=== PATIENT | female | born 1990 | race Two or more races ===

== ENCOUNTER 2022-01-17 20:23 | Emergency (ER) | payer SELFPAY ==
[~2022-01-17] VITALS: Ht 152.4 cm; Wt 86.4 kg
[2022-01-17 22:00] VITALS: BP 150/79
== END 2022-01-17 22:53 ==
LOC: ER 20:24
DX: F10.129 Alcohol abuse with intoxication, unspecified (principal); Z02.89 Encounter for other administrative examinations; Y90.9 Presence of alcohol in blood, level not specified
CPT/HCPCS: 99283

== ENCOUNTER 2025-04-15 00:02 | Emergency (ER) | payer MEDICAID ==
[~2025-04-15] VITALS: Ht 157.5 cm; Wt 90.9 kg
[2025-04-15 00:09] VITALS: BP 175/112; PULSE 114; RESP 16; O2SAT 100
--- NOTE | 2025-04-15 01:17 | Physician Documentation ---
History of Present Illness ~ Chief Complaint: Abscess Stated Complaint: BITE ON LEG Time Seen by MD: 01:17 HPI Patient presents to the emergency room for evaluation of her right buttock. She states over the past week that has some pain and swelling it has been given to drain. No fevers. No prior instance Tetanus Within 5 Years: No Medication Reconciliation Allergies: Coded Allergies: No Known Allergies (Unverified , 04/15/25) Past Medical History Alcohol Use: Occasionally Review of Systems ROS All review of systems negative except as per HPI Physical Exam Vital Signs: Temperature: 97.4, Source: Temporal, Heart Rate: 114, Respiratory Rate: 16, BP: 175/112, Pulse Oximetry: 100, Weight: 90.910 Oxygen Flow Rate: 0 Physical Exam General: Patient is awake, alert, oriented x4 in no acute distress and well appearing.~ Head: Normocephalic and atraumatic. Eyes: Conjunctival normal. EOMI. PERRL. ENT: Mucous membranes moist. Neck: Supple, trachea is midline. Chest: Clear to auscultation bilaterally without rales, rhonchi, or wheezes. There is no accessory muscle use or retractions. Cardiac: RRR without murmurs, gallops, or rubs. : Three abscesses located in patient's right buttock one measuring 1 cm one measuring 2 cm in the other measuring 3 cm Procedures Procedures Incision and drainage: Status post informed verbal consent patient was sterilely cleaned and draped. 1% lidocaine with epinephrine to a total of 4 cc was injected into patient's abscesses to achieve local analgesics. 11. Blade utilized to create 1 cm incision to each abscess. Abscesses were de loculated. A proximally half a cc was expressed from abscesses 1 and 2 and approximally 3 cc were expressed from abscess 3. Bacitracin ointment applied along with bandage. Patient tolerated procedure well without complication. Total time of procedure 10 minutes. Progress Results/Orders Results/Orders Orders - RILEY GÓMEZ MD Cephalexin Capsule (Keflex Capsule) (04/15/25 01:40) Completed Orders - RILEY GÓMEZ MD Bacitracin Ointment (Bacitracin Ointment (04/15/25 01:35) Vital Signs 04/15/25 00:09 Temp 97.4 Pulse 114 Resp 16 B/P (MAP) 175/112 Pulse Ox 100 O2 Flow Rate 0 Medical Decision Making Findings Patient presented to the emergency room with wounds on her right buttocks as per HPI. Differentials include but were not limited to abscess, cellulitis, foreign body, sepsis. Given patient's stable vital signs I do not believe she is septic and that has not emergent labs. Incision and drainage performed with good expression of purulence. Given location of her abscesses we will cover with antibiotics. Departure Disposition: HOME / SELF CARE / HOMELESS Impression: Primary Impression: Abscess Condition: Stable Discharge Instructions: Abscess, Care After Additional Instructions: You may take ibuprofen and Tylenol together for pain. Return for worsening of symptoms. Finish all antibiotics. Referrals: NO PRIMARY CARE PROVIDER (PCP) Prescriptions Cephalexin*Monohydrate* (Keflex*) 500 Mg Capsule 1 CAP PO Q12H for 10 Days, #20 CAP Prov: RILEY GÓMEZ MD 04/15/25 Signature Scribe Signature: No scribe Attestation: The note accurately reflects work and decisions made by me.Riley Gómez MD 04/15/25 01:41 RILEY GÓMEZ MD Apr 15, 2025 01:17
[2025-04-15] MEDS ORDERED: CEPH-585 PO (01:41)
[2025-04-15 01:45] VITALS: TEMP 97.4
[2025-04-15] MEDS: bacitracin 15gm ointment TP ONE (01:48)
== END 2025-04-15 01:50 | disposition home or self-care (01) ==
LOC: ER 00:03
DX: L02.31 Cutaneous abscess of buttock (principal)
CPT/HCPCS: 10060; 99283

== ENCOUNTER 2025-07-02 19:50 | Emergency (ER) | payer MEDICAID ==
[~2025-07-02] VITALS: Ht 157.5 cm; Wt 90.9 kg
[2025-07-02 20:19] VITALS: BP 163/101; PULSE 70; RESP 20; TEMP 98.8; O2SAT 96
--- NOTE | 2025-07-02 20:29 | ELECTROCARDIOGRAPH REPORT ---
[facility] Test Date: 2025-07-02 Test Time: 20:27:28 Pat Name: PRECIOUS MONTOYA Department: EMERGENCY ROOM Patient ID: [facility]-[id number] Room: Gender: F Hop Picker: SOUMYA : 1990 Requested By: MARIA R OZUNA Order Number: [id number] Reading MD: Dr. Leo Gay Measurements Intervals [place] Rate: 69 P: 24 [place]: 144 QRS: 40 QRSD: 97 T: 16 QT: 434 QTc: 465 Interpretive Statements Sinus arrhythmia Ventricular premature complex Borderline T wave abnormalities Baseline wander in lead(s) V4 Electronically Signed On 07-04-2025 11:18:[address] Leo Gay Please click the below link to view image of tracing.
--- NOTE | 2025-07-02 21:03 | RADIOLOGY REPORT ---
CHEST RADIOGRAPH INDICATION: CP TECHNIQUE: Single frontal view of the chest was obtained COMPARISON: None FINDINGS: Lines and Tubes: None Lungs: No focal consolidation. Pleura: No effusion. No pneumothorax. Cardiomediastinal contours: Unremarkable Bones: No acute osseous abnormality. IMPRESSION: No acute cardiopulmonary disease.
[2025-07-02 21:22] LABS: MEAN PLATELET VOLUME 7.3 FL (7.4-10.4); RED CELL DISTRIBUTION WIDTH 16.3 % (11.5-14.5)
[2025-07-02 21:46] LABS: CREATININE 0.79 MG/DL (0.40-0.90); PRO BRAIN NATRIURETIC PEPTIDE 177 PG/ML (0-125); TOTAL CARBON DIOXIDE 27.7 MMOL/L (24-32); eCRCL 80 ML/MIN; eGFR 84 ML/MIN
--- NOTE | 2025-07-02 22:35 | Physician Documentation ---
History of Present Illness ~ Chief Complaint: Hypertension Stated Complaint: NECK PAIN Time Seen by MD: 21:37 OK to notify your PCP?: Yes Source: patient Mode of Arrival: POV Exam Limitations: no limitations HPI Patient reports having left-sided neck pain for the past week as well as some headaches. She reports that she does sleep a lot but does not know of any known trauma to her neck. She reports that she has tried taking ibuprofen last dose yesterday without relief. She reports that she does have a history of hypertension but is currently not taken any medications for this. She was worried that her headache and neck pain was caused by her high blood pressure. She denies any chest pain, shortness of breath, nausea, vomiting, diarrhea or bloody noses. Medication Reconciliation Allergies: Coded Allergies: No Known Allergies (Unverified , 04/15/25) Scheduled Cyclobenzaprine* (Cyclobenzaprine*), 1 TAB PO Q8H Past Medical History Past Medical History: Hypertension Alcohol Use: Occasionally Review of Systems All Other Systems at this time: Reviewed and Negative Physical Exam Vital Signs: RN Vital Signs have been reviewed: Yes, Temperature: 98.8, Source: Temporal, Heart Rate: 70, Respiratory Rate: 20, BP: 163/101, Pulse Oximetry: 96, Weight: 90.900 Oxygen Flow Rate: 0 Pulse Oximetry Reflects: adequate oxygenation Physical Exam General: Alert, no apparent distress. HEENT: PERRL, EOMI, no injection, moist mucous membranes. Neck: Full range of motion. Trapezius muscle spasm to left neck. Midline nontender. Respiratory: Lungs clear, no respiratory distress. Chest: No accessory muscle use. Cardiovascular: Regular rate and rhythm, no murmurs. Gastrointestinal: Soft, nontender, nondistended. Bowels sounds present. Extremities: Normal range of motion, no deformity. Neurologic: Oriented x4. Psychiatric: Normal mood and affect. Skin: Normal color, warm and dry. No edema, no ecchymosis. Progress Results/Orders Reviewed/noted all lab results: Yes Results/Orders Orders - BRITTANY TELLEZ Hs Troponin I W Calculations (07/03/25 00:10) Completed Orders - BRITTANY TELLEZ Cyclobenzaprine Tablet (Flexeril Tablet) (07/02/25 22:40) Ketorolac Trometh 15mg/Ml Vial (Toradol (07/02/25 22:40) Medications Received in ER Medications (Trade) Dose Ordered Sig/Michael Route PRN Reason Start Time Stop Time Status Last Admin Dose Admin (Flexeril tablet) 10 mg ONCE ONCE PO 07/02/25 22:40 07/02/25 22:41 DC 07/02/25 22:40 10 MG (Toradol injection) 15 mg ONCE ONCE IM 07/02/25 22:40 07/02/25 22:41 DC 07/02/25 22:40 15 MG Vital Signs 07/02/25 20:19 Temp 98.8 Pulse 70 Resp 20 B/P (MAP) 163/101 Pulse Ox 96 O2 Flow Rate 0 Laboratory Tests Test 07/02/25 21:09 White Blood Count 8.4 Red Blood Count 5.03 Hemoglobin 12.4 Hematocrit 38.7 Mean Corpuscular Volume 77.1 L Mean Corpuscular Hemoglobin 24.6 L Mean Corpuscular Hemoglobin Concent 31.9 L Red Cell Distribution Width 16.3 H Platelet Count 593 H Mean Platelet Volume 7.3 L Neutrophils (%) (Auto) 63.9 Lymphocytes (%) (Auto) 26.3 Monocytes (%) (Auto) 5.0 Eosinophils (%) (Auto) 4.2 Basophils (%) (Auto) 0.6 Neutrophils # (Auto) 5.4 Lymphocytes # (Auto) 2.2 Monocytes # (Auto) 0.4 Eosinophils # (Auto) 0.4 Basophils # (Auto) 0.0 CBC Comment Sodium Level 138 Potassium Level 4.0 Chloride Level 102 Carbon Dioxide Level 27.7 Anion Gap 8 Blood Urea Nitrogen 13 Creatinine 0.79 Estimated GFR/1.73 m2 84 BUN/Creatinine Ratio 16.5 Glucose Level 116 H Calcium Level 8.7 Troponin I High Sensitivity 5 Pro-B-Type Natriuretic Peptide 177 H Albumin 2.9 L Chemistry Comments EKG/XRAY/CT/US/VASC/MRI EKG : Additional Comment Electrocardiogram: as interpreted by me; sinus arrhythmia, with 1 PVC, no axis deviation, no acute ischemia, no pre-excitation pattern. Rate: 69 Chest X-Ray : Additional Comments Chest x-ray: as interpreted by me; no large effusion, no large infiltrate, normal mediastinum. Medical Decision Making Additional information obtaine: old records Findings Physical exam is unremarkable except for spasm of the trapezius muscle on the left neck.. Labs unremarkable except for slightly elevated proBNP at 177. She does have a higher platelet count. Otherwise labs are unremarkable. EKG is normal and chest x-ray is normal. We discussed that this is likely cause due to musculoskeletal strain of her left neck which could have been caused due to her sleeping or something else but this is not related to her blood pressure. She had mild hypertension on arrival but other vital signs stable. I have prescribed a Toradol injection as well as a Flexeril with prescription sent to the pharmacy for her neck spasm. Differential Dx:Considerations: Include CHF, Include HTN, malignant, Include HTN, encephalopathy, Include medical noncompliance, Include medication withdrawal, Include pulmonary edema, Include renal failure Additional Information Myocardial infarction, CVA, intracranial hemorrhage. Departure Disposition: 01 HOME / SELF CARE / HOMELESS Impression: Primary Impression: Trapezius muscle spasm Additional Impression: Torticollis, acute Condition: Stable Discharge Instructions: Acute Torticollis, Adult Additional Instructions: Please follow up with your primary care provider within the next week to address her blood pressure being elevated while here. Return back here for any new or worsening symptoms. Referrals: NO PRIMARY CARE PROVIDER (PCP) Prescriptions Cyclobenzaprine* (Cyclobenzaprine*) 10 Mg Tablet 1 TAB PO Q8H for muscle spasms for 10 Days, #30 TAB 0 Refills Prov: BRITTANY TELLEZ 07/02/25 Education Educated: Patient Educated regarding: diagnosis, treatment, prognosis, need for follow up Additional Comment Medical Screen Exam This patient recieved a medical screening examination. After reviewing the individual's medical complaints with presenting symptoms and performing an appropriate physical examination, it was determined that no immediate life- threatening emergency medical condition is present. This individual is also not a women having contractions. Signature Scribe Signature: . Attestation: Scribed for Brittany Tellezp by Brittany Enriquez NP . 07/02/25 22:36 Parts of this note were created using [employer] voice recognition software program. While efforts were made to correct any mistakes made by this voice recognition software program, nonsensical phrases may remain in this note. In addition, there may be errors and syntax, grammar, content and spelling. BRITTANY TELLEZ Jul 02, 2025 22:35
[2025-07-02] MEDS ORDERED: CYCL-1 PO (22:36)
[2025-07-02] MEDS: ketorolac trometh 15mg/ml vial 15 MG/ML ML IM ONE (22:40)
== END 2025-07-03 00:42 | disposition home or self-care (01) ==
LOC: ER 19:50
DX: M43.6 Torticollis (principal); M62.830 Muscle spasm of back; I10 Essential (primary) hypertension; R06.2 Wheezing; I49.8 Other specified cardiac arrhythmias; Z79.899 Other long term (current) drug therapy; Z72.89 Other problems related to lifestyle
CPT/HCPCS: 36415; 71045; 80048; 83880; 84484; 85025; 93005; 96372; 99285; J1885